=== PATIENT | female | born 1970 | race Two or more races ===

== ENCOUNTER 2020-08-23 09:02 | Emergency (ER) | payer OTHER ==
[~2020-08-23] VITALS: Ht 160 cm; Wt 77.1 kg
[~2020-08-23 09:02] MED LIST: ACETAMINOPHEN500 M2 PO
[2020-08-23] MEDS ORDERED: ZITHROMAX500 MG PO (12:22)
[2020-08-23] MEDS ORDERED: NORFLEX100MG PO (12:22)
== END 2020-08-23 12:31 | disposition home or self-care (01) ==
LOC: ER 09:02
DX: R07.89 Other chest pain (principal); Z20.822 Contact with and (suspected) exposure to COVID-19